=== PATIENT | female | born 1990 | race Caucasian/White ===

== ENCOUNTER 2018-05-03 11:21 | Outpatient (CLI) | payer OTHER ==
[2014-10-25 19:17] VITALS: BP 132/74
--- NOTE | 2018-05-03 14:13 | Diagnostic Imaging Report ---
NELLI GO [facility] [id number] [facility] [address] [address] Report Submission Date: May 03, 2018 11:49:47 AM MAIL DISTRIBUTION SCHEME EXAMINER Patient Study Name: TEAGAN SALCIDO Date: May 03, 2018 11:31:51 AM MAIL DISTRIBUTION SCHEME EXAMINER Modality Type: DX Gender: F Description: KNEE 3 VIEWS : 88 Institution: [facility] Physician: NELLI GO Examination: Plain film left knee History: ACUTE LEFT KNEE PAIN, NO KNOWN INJURY Findings: 3 views of the left knee demonstrates normal cortical margins. No fracture. No dislocation. No joint effusion. No soft tissue irregularity. Impression: No acute osseous abnormality Electronically signed on May 03, 2018 11:49:47 AM MAIL DISTRIBUTION SCHEME EXAMINER by: Moshe ALVAREZ
== END 2018-05-03 11:23 ==
LOC: RAD 11:21
PROVIDERS: ATTEND Nurse Practitioner Family
DX: M25.562 Pain in left knee (principal)
CPT/HCPCS: 73562